=== PATIENT | female | born 1995 | race African-American/Black ===

== ENCOUNTER 2016-10-05 18:50 | Emergency (ER) | payer BC ==
[~2016-10-05] VITALS: Ht 167.6 cm; Wt 90.3 kg
[2016-10-05 18:56] VITALS: BP 115/74
--- NOTE | 2016-10-05 19:35 | PHYS DOC ---
General Chief Complaint: COUGH Stated Complaint: COUHG,SORE THROAT,LARYNGITIS Time Seen by MD: 19:24 Source: patient Problems: History of Present Illness Initial Comments Patient here for URI symptoms 2 weeks. Patient says for the last 2 weeks she's had a sore throat and a cough. She says she's felt hot and cold not taken her temperature. There is some earache. There is really no runny nose or nasal congestion. She has no postnasal drip. She does complain of a sore throat, hoarse voice, and some difficulty swallowing. She has not really eaten very much solid food but has been able tolerate by mouth fluids without difficulty. She has some generalized body aches. She has no shortness of breath. She does have a cough which is productive and she says it "tastes bloody", but she swallows down the mucus that she doesn't know what looks like. She's had some occasional nausea but no vomiting. There is no abdominal pain. There is no change amount of bladder habits. She is on control her last period was in 2012. She denies chance of . She has no focal extremity or neurologic complaints other than some generalized body aches. Patient's taken some over-the -counter cough and cold medicine for this without help. She notes no other increased or decreasing factors. When asked what brought her in here today after 2 weeks, she says she really didn't get a chance to get off from her job to come in until today. Patient has had some sick contacts at work over the last several weeks. Other than as described she's been nothing home for this and notes no factors that increase or decrease her symptoms. Patient's past medical history is otherwise notable for general herpes. She takes antivirals on an as-needed basis with outbreaks. She is a nonsmoker and nonuser of ethanol. Allergies: Coded Allergies: amphetamine (Unverified Allergy, Unknown, Unknown, 03/04/14) dextroamphetamine (Unverified Allergy, Unknown, Unknown, 03/04/14) Past Medical History Medical History: other Social History Smoker: non-smoker Alcohol: none Review of Systems All Other Systems: Reviewed and Negative Physical Exam General Appearance: WD/WN, no apparent distress Ear, Nose, Throat: normal ENT inspection, normal pharynx Neck: full range of motion, supple, normal inspection Respiratory: lungs clear, normal breath sounds, no respiratory distress Cardiovascular: regular rate, rhythm, no edema Extremities: non-tender, normal inspection Neurologic/Psychiatric: alert, normal mood/affect, oriented x 3 Skin: normal color Comments Generally this well-developed well-nourished female in no acute distress. Vitals are as noted. Pertinent findings on physical exam shows ears nose and throat to be grossly clear. There is no obvious postnasal drip. Patient does have somewhat of a hoarse voice but there is no gross dysphagia, no problems handling secretions noted. Neck is supple without gross adenopathy or JVD. There 's no meningeal signs. Chest is clear and cardiac vascular exam shows regular rate and rhythm without murmur. Extremities are clear. Patient is awake alert oriented and cooperative. Remainder of physical exam is clinically unremarkable. Orders, Labs, Meds Old charts note a single prior ER visit for carpal tunnel syndrome. Strep, influenza, mono negative. Chest x-ray shows no acute changes per the emergency physician. 2100 Patient resting comfortably ED. Discussed with the patient uncertain cause her symptoms. This may well be viral in nature, but while she does have a productive cough as well as down, she says it tasted "bloody" and this may be some hemoptysis or mucous related to bronchitis. I think it's reasonable after 2 weeks to get her started on some Avelox at this time. We'll go ahead and write a prescription for a Zithromax Z-Jim, as well as a prescription for some Tussionex for congestion and cough. We discussed additional home care including rest, increasing fluids, and use of Advil or Tylenol as needed for fever or pain. Patient does voice understanding need to follow up with primary care or return to the ER sooner as needed if worsen anyway. She requests a note for work for today and tomorrow, and I think this is a reasonable request on her part. I written her note accordingly. She looks well, in no acute discomfort distress, okay for discharge home at this time. ESTHER STAPLETON MD Oct 05, 2016 19:34
[2016-10-05 20:05] LABS: INFLUENZA A PATIENT NEGATIVE (NEGATIVE); INFLUENZA B PATIENT NEGATIVE (NEGATIVE)
[2016-10-05 20:23] LABS: MONONUCLEOSIS PATIENT NEGATIVE (NEGATIVE)
--- NOTE | 2016-10-06 08:08 | RAD ---
Chest, 2 views, 10/06/2015: History: Cough, sore throat The heart size is normal. The lungs are clear. There is no evidence of pleural fluid. IMPRESSION: No acute cardiopulmonary abnormality is detected.
== END 2016-10-05 21:12 | disposition home or self-care (01) ==
LOC: ER 18:55
DX: J02.9 Acute pharyngitis, unspecified (principal); R05 Cough; R13.10 Dysphagia, unspecified; M79.1 Myalgia; Z88.8 Allergy status to other drugs, medicaments and biological substances
CPT/HCPCS: 71020; 86308; 87070; 87804; 87880; 99285

== ENCOUNTER 2020-03-20 05:05 | Emergency (ER) | payer BC ==
[~2020-03-20] VITALS: Ht 172.7 cm; Wt 109.0 kg
--- NOTE | 2020-03-20 05:47 | PHYS DOC ---
Past History Past Medical History: No Pertinent History (RAMON CERRATO MD) Past Surgical History: Tonsillectomy (RAMON CERRATO MD) Alcohol Use: None Drug Use: None (RAMON CERRATO MD) Adult General Chief Complaint Chief Complaint: DIZZY/LIGHT HEADED HPI HPI Patient is a 25 year old female who presents with complaint of lightheadedness, shortness of breath, and body aches. The patient states that her symptoms started last night. Notes that she has also been having a runny nose and sore throat. Denies any known sick contacts and denies any known contact with any individuals confirmed or suspected to have COVID-19.. No significant past medical history. Has not taking medications for her symptoms at this time. States that her shortness of breath generally worsens with exertion. Has had increased fatigability. Does state that she feels tightness in her chest with breathing. Notes that her symptoms seem to worsen at nighttime when she is laying down. (RAMON CERRATO MD) Review of Systems Review of Systems Constitutional: Chills, fatigue, denies fever [] Eyes: Denies change in visual acuity, redness, or eye pain [] HENT: Runny nose, congestion, sore throat [] Respiratory: Shortness of breath, denies cough [] Cardiovascular: Chest tightness, denies edema [] GI: Denies abdominal pain, nausea, vomiting, bloody stools or diarrhea [] : Denies dysuria or hematuria [] Musculoskeletal: Myalgias, denies joint pain [] Integument: Denies rash or skin lesions [] Neurologic: Lightheadedness, denies focal weakness or sensory changes [] All other systems were reviewed and found to be within normal limits, except as documented in this note. (RAMON CERRATO MD) Current Medications Current Medications Current Medications Medications (Trade) Dose Ordered Sig/Jorden Start Time Stop Time Status Last Admin Dose Admin Sodium Chloride 1,000 ml @ 1,000 mls/hr Q1H 03/20/20 06:00 03/20/20 06:59 (RAMON CERRATO MD) Allergies Allergies Allergies Coded Allergies Type Severity Reaction Last Updated Verified amphetamine Allergy Unknown Unknown 03/04/14 No dextroamphetamine Allergy Unknown Unknown 03/04/14 No (RAMON CERRATO MD) Physical Exam Physical Exam Constitutional: Alert, afebrile, no acute distress. [] HENT: Normocephalic, atraumatic, bilateral external ears normal, posterior pharyngeal cobblestoning, mild pharyngeal erythema, rhinorrhea present. [] Eyes: PERRLA, EOMI, conjunctiva normal, no discharge. [] Neck: Normal range of motion, no tenderness, supple, no stridor. [] Cardiovascular: Tachycardia, regular rhythm, no murmur [] Lungs & Thorax: Bilateral breath sounds clear to auscultation [] Abdomen: Bowel sounds normal, soft, no tenderness, no masses, no pulsatile masses. [] Skin: Warm, dry, no erythema, no rash. [] Back: No tenderness, no CVA tenderness. [] Extremities: No tenderness, no cyanosis, no clubbing, ROM intact, no edema. [] Neurologic: Alert and oriented X 3, normal motor function, normal sensory function, no focal deficits noted. [] (RAMON CERRATO MD) Current Patient Data Vital Signs Vital Signs Date Time Temp Pulse Resp B/P (MAP) Pulse Ox O2 Delivery O2 Flow Rate FiO2 03/20/20 05:05 98.8 94 20 133/78 (96) 99 Room Air Vital Signs Date Time Temp Pulse Resp B/P (MAP) Pulse Ox O2 Delivery O2 Flow Rate FiO2 03/20/20 05:05 98.8 94 20 133/78 (96) 99 Room Air (RAMON CERRATO MD) EKG EKG [] (RAMON CERRATO MD) EKG Sinus rhythm at 91 bpm, no axis deviation, normal intervals, T wave inversion lead III, no ST elevations or ST depressions ([facility] DO) Radiology/Procedures Radiology/Procedures [] (RAMON CERRATO MD) Radiology/Procedures IMAGING REPORT Signed PATIENT: MARY CRUZ ACCOUNT: [id number] : 1995 LOCATION: ER AGE: 25 SEX: F EXAM STATUS: REG ER ORD. PHYSICIAN: RAMON CERRATO MD REASON: shortness of breath PROCEDURE: PORTABLE CHEST 1V Chest AP portable at 0511: Reason for examination: Short of breath. Comparison is made to previous study dated 10/05/2016. The heart size is normal. Mediastinum is unremarkable. Lung antunez are clear. No acute bony abnormalities are seen. Impression: No acute cardiopulmonary disease. Electronically signed by: Tawanda Javed MD (03/20/2020 6:05 AM) [facility] DICTATED AND SIGNED BY: TAWANDA JAVED MD DATE: 03/20/20604 CC: RAMON CERRATO MD; MARIA DOLORES MALAGON MD ~ (NISHANT CORRAL DO) Course & Med Decision Making Course & Med Decision Making Pertinent Labs and Imaging studies reviewed. (See chart for details) Patient started on IV fluids in the emergency department. At time of signout, lab work, x-ray results, and swab testing are pending. Care of patient signed out to Dr. Corral at 0604. (RAMON CERRATO MD) Course & Med Decision Making COVID-19 CRITERIA: The patient was evaluated during the global COVID-19 pandemic, and that diagnosis was suspected/considered upon their initial presentation. Their evaluation, treatment and testing was consistent with current guidelines for patients who present with complaints or symptoms that may be related to COVID-19. I received signout from Dr. Cerrato. Patient was reevaluated. Complains of sore throat, headache, bilateral ear pain, body aches and weakness. Very mild pharyngeal erythema on exam with no exudates, no left upper quadrant pain (mono considered). Ears with bl cerumen -unable to visualize TM. No rhinorrhea/nasal congestion, neck stiffness/rigidity or rash. Likely early URI/viral process, sxs started this morning, covid test pending. Rapid strep test negative. CXR wnl. UA with few bacteria, 5-10 WBCs PVCs and small leukocyte estrace-we will treat with antibiotics. Pt not . D-dimer and trop within normal ranges. Nonsepcific leukocytosis of 14. CK slightly elevated. Creatinine 1.1. Strep negative. Patient is afebrile, nontoxic-appearing and speaking in full sentences, 99=-00% on room air. Patient educated on conservative management, [id number] analgesia for pain or fever, rest and oral hydration. Was treated with IV fluids, dexamethasone and Toradol in the ED. Will dc home with Debrox, cepacol and Macrobid. Was given strict ED return precautions for chest pain, difficulties breathing, respiratory distress, severe headache or nuchal rigidity. Encouraged urgent outpatient follow-up with PMD within 1 wk (advised to repeat creatinine). Life-threatening processes were considered but are low suspicion at this time, given history and physical exam. Pt was educated on all prescription medications and adverse effects. All patient's questions were answered and pt was stable at time of discharge. Differential includes meningitis, encephalitis, Maxx's angina, necrotizing fasciitis, endocarditis, life-threatening rash, viral syndrome, head and neck abscess, sepsis or shock, or respiratory failure. I spoken with the patient and her caregivers. I explained the patient's cond ition, diagnoses and treatment plan based on the information available to me at this time. I have answered the patient and her caregiver's questions and addressed any concerns. The patient and her caregivers have a good understanding of patient's diagnosis, condition and treatment plan as can be expected at this point. Vital signs have been stable. Patient's condition is stable and appropriate for discharge from the emergency department. Patient will pursue further outpatient evaluation with primary care physician or other designated or consulting physician as outlined in the discharge instructions. The patient and/or caregivers are agreeable to this plan of care and follow-up instructions have been explained in detail. The patient and/or caregivers have received these instructions in written form and have expressed an understanding of the discharge instructions. The patient and/or caregivers are aware that any significant change of condition or worsening of symptoms should prompt immediate return to this or the closest emergency department or call to 911. (NISHANT CORRAL DO) Dragon Disclaimer Dragon Disclaimer This electronic medical record was generated, in whole or in part, using a voice recognition dictation system. (RAMON CERRATO MD) Departure Departure: Impression: Primary Impression: URI (upper respiratory infection) Additional Impressions: Headache UTI (urinary tract infection) Sore throat Disposition: HOME/RESIDENCE PRIOR TO ADM Condition: STABLE Referrals: MARIA DOLORES MALAGON MD (PCP) within 1 week, repeat creatinine Patient Instructions: Upper Respiratory Infection, Adult Additional Instructions: You have been tested for or diagnosed with COVID-19. It is an infection caused by a new type of coronavirus. COVID-19 will cause cold-like or mild flu symptoms in most. It can cause more severe symptoms like problems breathing in some. There is no treatment for COVID-19. The body will clear the infection over time. Self-care will help to ease discomfort. Steps to Take: Self-Care Rest as needed. Healthy habits may help you feel better. Steps include: Choose healthy foods including fruits and vegetables. Drink water throughout the day. Get plenty of sleep each night. If you smoke, try to quit. It may ease breathing. Avoid alcohol. Keep Others Healthy The virus can spread to others. Droplets are released every time you sneeze or cough. The droplets can get into the mouth, nose, or eyes of people near you and lead to infection. To lower the chances of spreading COVID-19 to others: Stay at home until your doctor has said it is safe to leave. If you tested positive this will mean staying isolated until both of the following are true: At least 7 days have passed since the start of illness. You are free of fever for at least 72 hours without the use of medicine. During this time: - Avoid public areas, events, or transportation. Do not return to work or school until your doctor has said it is safe to do so. - Call ahead if you need to go to a medical center. Let them know you may have COVID-19. It will help them guide you where to go. They may also ask you to wear a facemask when you come to the office. - If you call for emergency medical services, let them know you may have COVID- 19. While at home: - Try to avoid close contact with others. Stay about 6 feet away. - If possible, spend most of your time in a separate room from others. - Use a face mask if you will be in close contact with others such as sharing a room or vehicle. - Have someone wipe down common surfaces in the home. Use household baggage porter every day on areas like doorknobs, counters, or sinks. - Cough or sneeze into a tissue. Throw the tissue away right after use. If a tissue is not available, cough or sneeze into your elbow. - Wash your hands often. Wash them after sneezing or coughing. Use soap and water and wash for at least 20 seconds. Alcohol based hand house cleaner can be used if soap and water is not available. - Do not prepare food for others. Avoid sharing personal items like forks, spoons, or toothbrushes. - Avoid close contact with pets while you are sick. There is no evidence of the virus passing to pets. This is a safety step until more is known about this virus. Isolation can be frustrating. Social interaction can help. Keep in touch with friends and family through phone and tech options. You can still interact with others in your home, just keep a safe distance of about 6 feet. Follow-up: Your doctors office will check in with you to see if there are any changes in your health. You may be asked to keep track of symptoms to share with them. They will also let you know when you are clear to be in public again. Problems to Look Out For: Contact your doctor if your recovery is not going as you expect. Get emergency care if you have problems such as: - Trouble breathing - Nonstop chest pain or pressure - Changes in awareness, confusion, or problems waking - Lips or face have bluish color - Worsening of symptoms If you think you have an emergency, call for emergency medical services right away. As taken from [facility] Nitrofurantoin Monohyd/M-Cryst (MACROBID 100 MG CAPSULE) 100 Mg Capsule 1 CAP PO BID for uti for 5 Days, #10 CAP 0 Refills Prov: NISHANT CORRAL DO 03/20/20 Benzocaine/Menthol (CEPACOL SORE THROAT LOZENGE) 1 Each Lozenge 1 TAB PO Q4HRS for sore throat for 3 Days, #18 TAB 0 Refills Prov: NISHANT CORRAL DO 03/20/20 Carbamide Peroxide (EAR SYSTEM) 15 Ml Drops 5-10 DROP EACH EAR BID for ear wax MDD 20 drops for 4 Days, #15 ML 0 Refills Prov: NISHANT CORRAL DO 03/20/20 Justification of Admission: Justification of Admission: Justification of Admission Dx: N/A (RAMON CERRATO MD) Justification of Admission Dx: N/A (NISHANT CORRAL DO) Problem Qualifiers RAMON CERRATO MD Mar 20, 2020 05:47 NISHANT CORRAL DO Mar 20, 2020 06:14
[2020-03-20] MEDS ORDERED: IV NORMAL SALINE 1,000ML 1,000 ML IV SCH (06:00)
[2020-03-20 06:04] LABS: BASO # 0.1 x10^3/uL (0.0-0.2); BASO % 1 % (0-3); EOS # 0.1 x10^3/uL (0.0-0.7); EOS % 1 % (0-3); HEMATOCRIT 39.1 % (36.0-47.0); HEMOGLOBIN 12.8 g/dL (12.0-15.5); LYMPH # 1.5 x10^3/uL (1.0-4.8); LYMPH % 11 % (24-48); MEAN CORPUSCULAR HEMOGLOBIN 26 pg (25-35); MEAN CORPUSCULAR HGB CONC 33 g/dL (31-37); MEAN CORPUSCULAR VOLUME 80 fL (79-100); MONO % 7 % (0-9); NEUT # 11.3 x10^3uL (1.8-7.7); NEUT % 80 % (31-73); PLATELET COUNT 297 x10^3/uL (140-400); RED CELL DISTRIBUTION WIDTH 14.1 % (11.5-14.5)
--- NOTE | 2020-03-20 06:08 | RAD ---
Chest AP portable at 0511: Reason for examination: Short of breath. Comparison is made to previous study dated 10/05/2016. The heart size is normal. Mediastinum is unremarkable. Lung antunez are clear. No acute bony abnormalities are seen. Impression: No acute cardiopulmonary disease. Electronically signed by: Kyra Kennedy MD (03/20/2020 6:05 AM) [facility]
[2020-03-20 06:21] LABS: BILIRUBIN,URINE NEG (NEG); CLARITY,URINE HAZY; COLOR,URINE YELLOW; GLUCOSE,URINE NEG (NEG); NITRITE,URINE NEG (NEG); UROBILINOGEN,URINE 0.2 mg/dL (0.2 mg/dL)
[2020-03-20 06:22] LABS: BACTERIA,URINE FEW /HPF (0-FEW); SQUAMOUS EPITHELIAL CELL,UR FEW /LPF
[2020-03-20 06:41] LABS: CALCIUM 8.5 mg/dL (8.5-10.1); CREATININE 1.1 mg/dL (0.6-1.0); GFR 72.6
--- NOTE | 2020-03-20 06:45 | EKG ---
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
[2020-03-20 06:57] LABS: ALBUMIN 3.4 g/dL (3.4-5.0); MAGNESIUM 1.8 mg/dL (1.8-2.4); TOTAL BILIRUBIN 0.3 mg/dL (0.2-1.0); TOTAL PROTEIN 6.9 g/dL (6.4-8.2)
[2020-03-20] MEDS ORDERED: DEXAMETHASONE SOD PHOS 10 MG/ML VIAL. IV ONE (07:45)
[2020-03-20] MEDS ORDERED: KETOROLAC 15 MG/ML VIAL. IVP ONE (07:45)
[2020-03-20] MEDS ORDERED: BENZ1LOZ48 PO (08:00)
[2020-03-20] MEDS ORDERED: NITR100C62 PO (08:00)
[2020-03-20] MEDS ORDERED: CARB15DR30 EACH EAR (08:00)
[2020-03-20 08:15] VITALS: BP 139/74
== END 2020-03-20 08:15 | disposition home or self-care (01) ==
LOC: ER 05:05
DX: N39.0 Urinary tract infection, site not specified (principal); J02.9 Acute pharyngitis, unspecified; R51 Headache; Z20.828 Contact with and (suspected) exposure to other viral communicable diseases; Z88.8 Allergy status to other drugs, medicaments and biological substances
CPT/HCPCS: 36415; 71045; 80053; 81001; 81025; 82553; 83735; 84484; 85025; 85379; 87070; 87086; 87880; 93005; 96361; 96374; 96375; 99285; J1100; J1885; J7030; U0003